=== PATIENT | male | born 1955 | race African-American/Black ===

== ENCOUNTER 2018-12-25 18:03 | Emergency (ER) | payer OTHER ==
[~2018-12-25] VITALS: Ht 172.7 cm; Wt 92.0 kg
[2018-12-26 07:30] VITALS: BP 133/79
== END 2018-12-26 08:11 | disposition home or self-care (01) ==
LOC: ER 18:03
DX: T51.0X1A Toxic effect of ethanol, accidental (unintentional), initial encounter (principal); I10 Essential (primary) hypertension; Y92.89 Other specified places as the place of occurrence of the external cause
CPT/HCPCS: 36415; 80320; 99283; G0480

== ENCOUNTER 2019-06-09 22:04 | Emergency (ER) | payer OTHER ==
[~2019-06-09] VITALS: Ht 172.7 cm; Wt 80.0 kg
[2019-06-09 22:08] VITALS: BP 143/88
== END 2019-06-10 03:14 | disposition left against medical advice (07) ==
LOC: ER 22:04
DX: R06.81 Apnea, not elsewhere classified (principal); Z53.21 Procedure and treatment not carried out due to patient leaving prior to being seen by health care provider